=== PATIENT | female | born 1960 | race Asian ===

== ENCOUNTER → 2021-11-15 | Outpatient (CLI) | payer OTHER ==
[~2021-11-15] MED LIST: AZIL40TA PO; CEFAZOLIN SODIUM 1000MG/VIAL ONE; DEXAMETHASONE 4MG/ML 1ML VIAL ONE; DEXT 5%/LACTATED RINGERS 1,000 ML IV SCH; FENTANYL CITRATE/PF 50MCG/ML 2ML VIAL ONE; GLYCOPYRROLATE 0.2 MG/ML 2ML VIAL ONE; HYDROCODONE/ACETAMINOPHEN 5/325MG TABLET PO PRN; HYDROMORPHONE HCL/PF 2MG/ML CPJ ONE; IBUPROFEN 600MG TABLET PO PRN; INDA1.255 PO; MIDAZOLAM HCL 2 MG/2 ML VIAL ONE; NEOSTIGMINE METHYLSULFATE 1MG/ML 10 ML VIAL ONE; ONDANSETRON HCL 4MG/2ML INJ ONE; PROPOFOL 200MG/20ML VIAL IV ONE; ROCURONIUM BROMIDE 10MG/ML VIAL 5ML IV ONE
[2021-11-15 11:17] LABS: BASOPHILS % 2.8 % (0.0-2.0); EOSINOPHILS % 5.8 % (0.0-5.0); HEMATOCRIT. 34.8 % (36.0-48.0); HEMOGLOBIN. 11.5 g/dL (12.0-16.0); LYMPHOCYTES % 32.6 % (20.0-50.0); MEAN CORPUSCULAR HEMOGLOBIN 28.4 pg (28.0-32.0); MEAN CORPUSCULAR VOLUME 86.2 fL (81.0-99.0); MEAN PLATELET VOLUME 8.9 fl (7.4-10.4); MONOCYTES % 7.9 % (2.0-8.0); NEUTROPHILS % 50.9 % (40.0-76.0); PLATELET 246 x1000/uL (130-400); RED BLOOD CELL COUNT 4.04 mill/uL (4.2-5.4); RED CELL DISTRIBUTION WIDTH 14.1 % (11.6-14.6)
[2021-11-15 11:26] LABS: CHLORIDE 105 mEq/L (98-107)
[2021-11-15 11:34] LABS: CLARITY URINE CLEAR (CLEAR); COLOR URINE YELLOW (YELLOW); KETONES URINE NEGATIVE (NEGATIVE); LEUKOCYTE ESTERASE URINE TRACE (NEGATIVE); NITRITE URINE NEGATIVE (NEGATIVE); OCCULT BLOOD URINE NEGATIVE (NEGATIVE); PROTEIN URINE NEGATIVE (NEGATIVE); UROBILINOGEN URINE 0.2 E.U./dL (0.2-1.0)
[2021-11-15 11:35] LABS: UCG SCREEN NEGATIVE
[2021-11-15 11:35] LABS: PARTIAL THROMBOPLASTIN TIME 31.7 sec (23.4-31.0); PROTHROMBIN TIME 10.5 sec (9.6-11.0)
== END | disposition home or self-care (01) ==
LOC: LAB 10:38
PROVIDERS: ATTEND Obstetrics & Gynecology Obstetrics
DX: Z20.822 Contact with and (suspected) exposure to COVID-19 (principal)
CPT/HCPCS: 36415; 80053; 81003; 81025; 85025; 85610; 85730; 87426; C9803

== ENCOUNTER 2021-11-16 06:04 | Inpatient (IN) | payer OTHER ==
[~2021-11-16] VITALS: Ht 157.5 cm; Wt 56.2 kg
[~2021-11-16 06:04] MED LIST changes: -CEFAZOLIN SODIUM 1000MG/VIAL ONE; -DEXAMETHASONE 4MG/ML 1ML VIAL ONE; -DEXT 5%/LACTATED RINGERS 1,000 ML IV SCH; -FENTANYL CITRATE/PF 50MCG/ML 2ML VIAL ONE; -GLYCOPYRROLATE 0.2 MG/ML 2ML VIAL ONE; -HYDROCODONE/ACETAMINOPHEN 5/325MG TABLET PO PRN; -HYDROMORPHONE HCL/PF 2MG/ML CPJ ONE; -IBUPROFEN 600MG TABLET PO PRN; +LACTATED RINGERS 1,000 ML IV SCH; -MIDAZOLAM HCL 2 MG/2 ML VIAL ONE; -NEOSTIGMINE METHYLSULFATE 1MG/ML 10 ML VIAL ONE; -ONDANSETRON HCL 4MG/2ML INJ ONE; -PROPOFOL 200MG/20ML VIAL IV ONE; -ROCURONIUM BROMIDE 10MG/ML VIAL 5ML IV ONE
[2021-11-16] MEDS ORDERED: VASOPRESSIN 20 UNIT/ML 1ML ONE (06:50)
[2021-11-16] MEDS ORDERED: MEPERIDINE HCL/PF 25MG/ML CPJ IV PRN ×2 (08:15)
[2021-11-16] MEDS ORDERED: HYDROMORPHONE HCL/PF 2MG/ML CPJ IV PRN ×2 (08:15)
[2021-11-16] MEDS ORDERED: ONDANSETRON HCL 4MG/2ML INJ IV PRN ×2 (08:15)
[2021-11-16] MEDS ORDERED: LABETALOL 5MG/ML SYR 20 MG/4 ML SYRINGE IV PRN ×2 (08:15)
[2021-11-16] MEDS ORDERED: HYDROCODONE/ACETAMINOPHEN 5/325MG TABLET PO PRN (11:45)
[2021-11-16] MEDS ORDERED: MORPHINE SULFATE 2 MG/ML CPJ (NOT FOR IM USE) IV PRN (11:45)
[2021-11-16] MEDS ORDERED: IBUPROFEN 800MG TABLET PO PRN (11:45)
[2021-11-16 12:30] VITALS: BP 128/68
[2021-11-16 12:45] VITALS: BP 124/66
[2021-11-16] MEDS ORDERED: NALOXONE HCL 0.4MG/ML VIAL IV PRN (12:45)
[2021-11-16] MEDS: ACETAMINOPHEN 500MG TABLET PO SCH ×2 (14:00→22:00)
[2021-11-16 16:00] VITALS: BP 119/84
[2021-11-16] MEDS: DEXT 5%/LACTATED RINGERS 1,000 ML IV SCH (18:28)
[2021-11-16 20:00] VITALS: BP 121/77
[2021-11-17] VITALS: BP 111/72
[2021-11-17 04:00] VITALS: BP 102/62
[2021-11-17] MEDS: ACETAMINOPHEN 500MG TABLET PO SCH ×2 (05:37→09:08)
[2021-11-17] MEDS: DEXT 5%/LACTATED RINGERS 1,000 ML IV SCH ×2 (07:45→16:48)
[2021-11-17 08:02] LABS: BASOPHILS % 0.2 % (0.0-2.0); EOSINOPHILS % 0.1 % (0.0-5.0); HEMATOCRIT. 31.7 % (36.0-48.0); HEMOGLOBIN. 10.5 g/dL (12.0-16.0); LYMPHOCYTES % 14.7 % (20.0-50.0); MEAN CORPUSCULAR HEMOGLOBIN 28.4 pg (28.0-32.0); MEAN CORPUSCULAR VOLUME 85.7 fL (81.0-99.0); MEAN PLATELET VOLUME 9.5 fl (7.4-10.4); MONOCYTES % 7.4 % (2.0-8.0); NEUTROPHILS % 77.6 % (40.0-76.0); PLATELET 225 x1000/uL (130-400)
[2021-11-17] MEDS ORDERED: ACETAMINOPHEN 500MG TABLET PO PRN (17:45)
[2021-11-17] MEDS: ACETAMINOPHEN 500MG TABLET PO PRN (19:05)
[2021-11-17 20:00] VITALS: BP 124/78
[2021-11-18] VITALS: BP 114/78
[2021-11-18 04:00] VITALS: BP 125/74
[2021-11-18 08:00] VITALS: BP 168/88
[2021-11-18] MEDS: ACETAMINOPHEN 500MG TABLET PO PRN (09:14)
[2021-11-18 12:00] VITALS: BP 133/87
[2021-11-18 12:49] VITALS: BP 133/87
== END 2021-11-18 14:40 | disposition home or self-care (01) | DRG 742 ==
LOC: OR 06:04 → 6EST 06:05
PROVIDERS: ADMIT Obstetrics & Gynecology Obstetrics; ATTEND Obstetrics & Gynecology Obstetrics
PROC: 0T768DZ Dilation of Right Ureter with Intraluminal Device, Via Natural or Artificial Opening Endoscopic (ICD-10-PCS; principal; 2021-11-16)
PROC: 0UT90ZZ Resection of Uterus, Open Approach (ICD-10-PCS; 2021-11-16)
PROC: 0UT20ZZ Resection of Bilateral Ovaries, Open Approach (ICD-10-PCS; 2021-11-16)
PROC: 0UT70ZZ Resection of Bilateral Fallopian Tubes, Open Approach (ICD-10-PCS; 2021-11-16)
DX: D25.9 Leiomyoma of uterus, unspecified (principal); N13.30 Unspecified hydronephrosis; Z88.6 Allergy status to analgesic agent; N83.312 Acquired atrophy of left ovary; N83.311 Acquired atrophy of right ovary
CPT/HCPCS: 36415; 85025; J0690; J1100; J1170; J2250; J2405; J2704; J2710; J3010; J3490; J7121